=== PATIENT | male | born 1935 | race Caucasian/White ===

== ENCOUNTER 2017-07-04 07:28 | Inpatient (IN) | payer OTHER ==
[~2017-07-04] VITALS: Ht 172.7 cm; Wt 79.1 kg
[~2017-07-04 07:28] MED LIST: ARICEPT10 MG PO; ATENOLOL25 M1 PO; ATORVASTATIN CA40 MG PO; AVODART0.5 MG PO; COUMADIN,JANTO2.5 MG PO; COUMADIN,JANTOVE4 MG PO; COUMADIN,JANTOVE5 MG PO; DONEPEZIL HCL10 MG PO; LASIX40 MG PO; LIPITOR5 MG PO; LISINOPRIL10 MG PO; PROTONIX40 MG PO
[2017-07-04 08:15] LABS: HEMATOCRIT 38.5 % (38.0-50.0); MCH 29.9 PG (29.0-34.0); MCHC 31.9 G/DL (30.0-36.0); MCV 93.7 FL (86-99); MEAN PLAT.VOLUME 9.1 uM^3 (9.0-12.4); PLATELET COUNT 165 K/uL (156-360); RBC DIS.WIDTH-CV 14.7 % (11.8-14.6); RBC DIS.WIDTH-SD 50.1 % (39-53); RED BLOOD COUNT 4.11 M/uL (4.00-5.50)
[2017-07-04 08:39] LABS: ANION GAP 7 MEQ/L (2-14); CHLORIDE 106 MEQ/L (99-109); SAMPLE HEMOLYSIS CHECK 0; SAMPLE ICTERIC CHECK 0; SAMPLE LIPEMIA CHECK 0; SODIUM 142 MEQ/L (136-147)
[2017-07-04 08:45] LABS: GFR ESTIMATE (CALCULATED) > 59 mL/min/; GLUCOSE 106 mg/dL (70-99); UREA NITROGEN (BUN) 19 mg/dL (9-23)
[2017-07-04 08:49] LABS: TROP-I INTERPRETATION NEGATIVE; TROPONIN-I 0.02 ng/mL (0.0-0.30)
[2017-07-04 10:24] LABS: INTER. NORMALIZED RATIO 3.1; PROTHROMBIN TIME 35.6 SEC (10.2-12.9)
[2017-07-04 10:44] LABS: ADD MIUA? NO; BILIRUBIN NEGATIVE; BLOOD NEGATIVE; COLOR YELLOW ((YELLOW)); GLUCOSE (STRIP) NEGATIVE; KETONES NEGATIVE; LEUKOCYTES NEGATIVE; NITRITE NEGATIVE; PROTEIN (STRIP) NEGATIVE; SPECIFIC GRAVITY 1.016 (1.000-1.030)
[2017-07-04] MEDS ORDERED: LOPRESSOR50 MG PO (12:01)
[2017-07-04] MEDS ORDERED: AVODART0.5 MG PO (12:02)
[2017-07-04] MEDS ORDERED: PROTONIX40 MG PO (12:04)
[2017-07-04] MEDS ORDERED: COZAAR25 MG PO (12:04)
[2017-07-04 14:13] VITALS: BP 117/68
[2017-07-04 15:23] LABS: TROP-I INTERPRETATION NEGATIVE; TROPONIN-I 0.02 ng/mL (0.0-0.30)
[2017-07-04 19:41] VITALS: BP 126/57
[2017-07-04 20:57] LABS: TROP-I INTERPRETATION NEGATIVE; TROPONIN-I 0.02 ng/mL (0.0-0.30)
[2017-07-04 23:36] VITALS: BP 119/70
[2017-07-05 07:05] LABS: INTER. NORMALIZED RATIO 2.5; PROTHROMBIN TIME 28.9 SEC (10.2-12.9)
[2017-07-05 07:24] LABS: ANION GAP 10 MEQ/L (2-14); CHLORIDE 104 MEQ/L (99-109); GFR ESTIMATE (CALCULATED) > 59 mL/min/; GLUCOSE 96 mg/dL (70-99); POTASSIUM 3.8 MEQ/L (3.7-5.4); SAMPLE HEMOLYSIS CHECK 0; SAMPLE ICTERIC CHECK 0; SAMPLE LIPEMIA CHECK 0; SODIUM 143 MEQ/L (136-147); UREA NITROGEN (BUN) 19 mg/dL (9-23)
[2017-07-05 08:21] VITALS: BP 130/70
[2017-07-05 16:16] VITALS: BP 113/68
[2017-07-05 20:23] VITALS: BP 113/63
[2017-07-05 20:28] VITALS: BP 101/62
[2017-07-06 01:36] VITALS: BP 133/60
[2017-07-06 06:59] LABS: EOSINOPHIL (%) 2.5 % (0-5); EOSINOPHIL COUNT 0.2 K/uL (0-0.3); HEMATOCRIT 41.2 % (38.0-50.0); IMMATURE GRANULOCYTE (%) 0.4 % (0.0-0.7); LYMPHOCYTE COUNT 0.7 K/uL (1.0-2.8); MCH 29.6 PG (29.0-34.0); MCHC 31.6 G/DL (30.0-36.0); MCV 93.8 FL (86-99); MEAN PLAT.VOLUME 9.4 uM^3 (9.0-12.4); MONOCYTE (%) 12.5 % (3-12); PLATELET COUNT 171 K/uL (156-360); RBC DIS.WIDTH-CV 14.6 % (11.8-14.6); RBC DIS.WIDTH-SD 50.1 % (39-53); RED BLOOD COUNT 4.39 M/uL (4.00-5.50); WHITE BLOOD COUNT 7.9 K/uL (4.1-10.2)
[2017-07-06 07:18] LABS: INTER. NORMALIZED RATIO 2.4; PROTHROMBIN TIME 27.6 SEC (10.2-12.9)
[2017-07-06 07:20] VITALS: BP 121/57
[2017-07-06 07:22] LABS: ANION GAP 7 MEQ/L (2-14); CHLORIDE 101 MEQ/L (99-109); GFR ESTIMATE (CALCULATED) > 59 mL/min/; GLUCOSE 98 mg/dL (70-99); MAGNESIUM 2.1 mg/dl (1.3-2.7); POTASSIUM 3.4 MEQ/L (3.7-5.4); SAMPLE HEMOLYSIS CHECK 0; SAMPLE ICTERIC CHECK 0; SAMPLE LIPEMIA CHECK 0; SODIUM 140 MEQ/L (136-147); UREA NITROGEN (BUN) 23 mg/dL (9-23)
[2017-07-06 11:20] VITALS: BP 111/57
[2017-07-06 15:43] VITALS: BP 98/64
[2017-07-06 20:37] VITALS: BP 113/62
[2017-07-07 01:20] VITALS: BP 110/71
[2017-07-07 04:45] VITALS: BP 100/55
[2017-07-07 06:31] LABS: INTER. NORMALIZED RATIO 2.4; PROTHROMBIN TIME 27.7 SEC (10.2-12.9)
[2017-07-07 06:47] LABS: ANION GAP 9 MEQ/L (2-14); CHLORIDE 104 MEQ/L (99-109); GFR ESTIMATE (CALCULATED) > 59 mL/min/; GLUCOSE 94 mg/dL (70-99); MAGNESIUM 2.2 mg/dl (1.3-2.7); SAMPLE HEMOLYSIS CHECK 0; SAMPLE ICTERIC CHECK 0; SAMPLE LIPEMIA CHECK 0; SODIUM 141 MEQ/L (136-147); UREA NITROGEN (BUN) 24 mg/dL (9-23)
[2017-07-07 08:33] VITALS: BP 112/52
== END 2017-07-07 09:12 | disposition home health service (06) | DRG 292 ==
LOC: EME 07:28 → 5EAST 09:43 → EDOF 09:43 → ENRESERV 09:45 → 5EAST 14:11 → ENPENDDIS 07-07 → 5EAST 07-07 09:12
PROVIDERS: Internal Medicine; Nurse Practitioner Family
DX: I11.0 Hypertensive heart disease with heart failure (principal); I50.23 Acute on chronic systolic (congestive) heart failure; I48.2 Chronic atrial fibrillation; G30.9 Alzheimer's disease, unspecified; F02.80 Dementia in other diseases classified elsewhere, unspecified severity, without behavioral disturbance, psychotic disturbance, mood disturbance, and anxiety; Z95.2 Presence of prosthetic heart valve; I27.20 Pulmonary hypertension, unspecified; E78.5 Hyperlipidemia, unspecified; J98.11 Atelectasis; K21.9 Gastro-esophageal reflux disease without esophagitis; Z79.01 Long term (current) use of anticoagulants; Z82.49 Family history of ischemic heart disease and other diseases of the circulatory system; I42.9 Cardiomyopathy, unspecified; Z87.891 Personal history of nicotine dependence; I08.3 Combined rheumatic disorders of mitral, aortic and tricuspid valves; R09.02 Hypoxemia; Z95.1 Presence of aortocoronary bypass graft
CPT/HCPCS: 71020; 80048; 81003; 83735; 83880; 84484; 85025; 85027; 85610; 90686; 93005; 93306; 94760; 94799; 99202; 99281; 99285; J1940